=== PATIENT | male | born 1960 ===

== ENCOUNTER 2017-01-02 10:42 | Inpatient (IN) | payer OTHER ==
[~2017-01-02] VITALS: Ht 182.9 cm; Wt 106.6 kg
[2017-01-02] VITALS (14 sets, daily range): BP systolic 140–197; BP diastolic 82–120
--- NOTE | 2017-01-02 06:26 | Anethesia Preoperative Eval ---
Anesthesia Pre-op PMH/ROS General Date of Evaluation: Jan 02, 2017 Time of Evaluation: 06:26 Anesthesiologist: jovita Mallampati Score Class I : Soft palate, uvula, fauces, pillars visible Class II: Soft palate, uvula, fauces visible Class III: Soft palate, base of uvula visible Class IV: Only hard plate visible Allergies: Coded Allergies: No Known Allergies (Unverified , 01/02/17) Medications: see eMAR Past Medical History Cardiovascular: Reports: HTN Musculoskeletal/Integumentary: Reports: OA Other: obesity VERNELL FLORES Jan 02, 2017 06:26
--- NOTE | 2017-01-02 11:20 | Diagnostic Imaging Report ---
Indication: Left hip pain Technique: 2 views of the left hip Comparison: None Findings: There are severe degenerative changes of the left hip joint. There is joint space narrowing subchondral sclerosis on both sides, as well as proliferative change. Extensive phleboliths are seen in the pelvis. Impression: Degenerative left hip arthropathy, as described
[2017-01-02] MEDS ORDERED: NS Irrig 2000ml IRRIG ONE (11:55)
[2017-01-02] MEDS ORDERED: Bacitracin 50000 Units Vial ONE (11:55)
[2017-01-02] MEDS ORDERED: Duramorph PF 5mg/10ml amp ONE (11:57)
[2017-01-02] MEDS ORDERED: NORCO 10/3251 EA ORAL (12:02)
[2017-01-02] MEDS ORDERED: Propofol 200mg/20ml IV ONE (12:02)
--- NOTE | 2017-01-02 12:09 | Pre-Procedure Note/Attestation ---
Pre-Procedure Note/Attestation Complete Prior to Procedure Planned Procedure: right Procedure Narrative: right total hip Indications for Procedure Pre-Operative Diagnosis: right hip arthritis Attestation I attest that I discussed the nature of the procedure; its benefits; risks and complications; and alternatives (and the risks and benefits of such alternatives ), prior to the procedure, with the patient (or the patient's legal vendor representatives). I attest that, if there was a reasonable possibility of needing a blood transfusion, the patient (or the patient's legal vendor representatives) was given the [facility] standardized written summary, pursuant to the [place] Blood Safety Act ([place] Health and Safety Code # 1645, as amended). I attest that I re-evaluated the patient just prior to the surgery and that there has been no change in the patient's H&P, except as documented below: FRAN DORAN Jan 02, 2017 12:09
--- NOTE | 2017-01-02 12:23 | Pre-Procedure Note/Attestation ---
Pre-Procedure Note/Attestation Complete Prior to Procedure Planned Procedure: left Procedure Narrative: left total hip corrected Indications for Procedure Pre-Operative Diagnosis: left hip arthritis Attestation I attest that I discussed the nature of the procedure; its benefits; risks and complications; and alternatives (and the risks and benefits of such alternatives ), prior to the procedure, with the patient (or the patient's legal electronics parts sales representative). I attest that, if there was a reasonable possibility of needing a blood transfusion, the patient (or the patient's legal electronics parts sales representative) was given the [facility] standardized written summary, pursuant to the [place] Blood Safety Act ([place] Health and Safety Code # 1645, as amended). I attest that I re-evaluated the patient just prior to the surgery and that there has been no change in the patient's H&P, except as documented below: FRAN DORAN Jan 02, 2017 12:23
[2017-01-02] MEDS ORDERED: Ropivacaine 5mg/ml Vial 20ml INJ ONE (12:27)
[2017-01-02] MEDS ORDERED: cloNIDine 1000mcg/10ml inj ONE (12:32)
[2017-01-02] MEDS ORDERED: Bupivacaine 0.5% Inj 30 ml vial INJ ONE (12:43)
[2017-01-02] MEDS ORDERED: LR 1000ml 1,000 ML IVLG SCH (13:58)
--- NOTE | 2017-01-02 13:58 | Anethesia Preoperative Eval ---
Anesthesia Pre-op PMH/ROS General Date of Evaluation: Jan 02, 2017 Time of Evaluation: 12:32 Anesthesiologist: Dariela ASA Score: ASA 3 Mallampati Score Class I : Soft palate, uvula, fauces, pillars visible Class II: Soft palate, uvula, fauces visible Class III: Soft palate, base of uvula visible Class IV: Only hard plate visible Mallampati Classification: Class III Surgeon: Lawrence Diagnosis: L Hip Pain Surgical Procedure: L Hip Total Arthroplasty Anesthesia History: none Family History: no anesthesia problems Allergies: Coded Allergies: No Known Allergies (Unverified , 01/02/17) Medications: see eMAR Past Medical History Cardiovascular: Reports: HTN, other - HL Musculoskeletal/Integumentary: Reports: OA Other: obesity - BMI 32 PSxH Narrative: R ORION, L Shoulder Sx Anesthesia Pre-op Phys. Exam Physician Exam Last Vital Signs Date Time Temp Pulse Resp B/P (MAP) Pulse Ox O2 Delivery O2 Flow Rate FiO2 01/02/17 11:24 98.1 95 18 140/95 98 Room Air Constitutional: NAD Neurologic: CN 2-12 intact Cardiovascular: RRR Respiratory: CTA Gastrointestinal: S/NT/ND Airway Exam Mallampati Score: Class III MO: limited ROM: limited Teeth: intact Anesthesia Pre-op A/P Risk Assessment & Plan Assessment: ASA 3 Plan: GA, Spinal, L Lumbar Block Status Change Before Surgery: No Pre-Antibiotics Dru Grams Ancef IV Given Within 1 Hr of Incision: Yes Time Given: 13:01 Kayden Lyle MD Jan 02, 2017 13:58
[2017-01-02] MEDS ORDERED: Tranexamic Acid 1,000 MG in NS 65 ML IVPB ONE (14:00)
[2017-01-02] MEDS ORDERED: fentaNYL 100 mcg/2 mL IV PRN (14:00)
[2017-01-02] MEDS ORDERED: Metoclopramide 10mg/2ml Inj IVP PRN (14:00)
[2017-01-02] MEDS ORDERED: Midazolam 2mg/2ml Inj IVP PRN (14:00)
[2017-01-02] MEDS ORDERED: Norco 7.5mg/325mg tab ORAL PRN (14:00)
[2017-01-02] MEDS ORDERED: Atropine Inj 1mg/10ml Syr IV PRN (14:00)
[2017-01-02] MEDS ORDERED: Ketorolac 60mg Inj IV PRN (14:00)
[2017-01-02] MEDS ORDERED: Meperidine 25mg/0.5ml Inj (FOR RIGORS ONLY) IV PRN (14:00)
[2017-01-02] MEDS ORDERED: LORazepam Inj 2mg/ml 1ml IV PRN (14:00)
[2017-01-02] MEDS ORDERED: oxyCODONE HCL/Acetaminophen 5/325mg ORAL PRN (14:00)
[2017-01-02] MEDS ORDERED: Norco 5mg/325mg tab ORAL PRN (14:00)
[2017-01-02] MEDS ORDERED: DiphenhydrAMINE 50mg/ml Inj IVP PRN (14:00)
[2017-01-02] MEDS ORDERED: Ketorolac 30mg Inj IV PRN (14:00)
--- NOTE | 2017-01-02 14:00 | Immediate Post-Op Evaluation ---
Immediate Post-Op Evalulation Immediate Post-Op Evalulation Procedure: L Total Hip Arthroplasty Date of Evaluation: Jan 02, 2017 Time of Evaluation: 16:05 IV Fluids: 1200 Blood Products: 0 Estimated Blood Loss: 50 Urinary Output: 0 Blood Pressure Systolic: 184 Blood Pressure Diastolic: 116 Pulse Rate: 85 Respiratory Rate: 16 O2 Sat by Pulse Oximetry: 99 Temperature (Fahrenheit): 98.7 Pain Score (1-10): 4 Nausea: No Vomiting: No Complications 0 Patient Status: awake, reacts, patent, extubated, none Hydration Status: adequate Dru Grams Ancef IV Given Within 1 Hr of Incision: Yes Time Given: 13:01 Kayden Lyle MD Jan 02, 2017 14:00
--- NOTE | 2017-01-02 16:45 | Diagnostic Imaging Report ---
Indication: Intraoperative, hip pain Technique: One view of the pelvis Comparison: Left hip radiograph 5 hours earlier Findings: Intraoperative images demonstrate placement of an acetabular cup and a left femoral broach. Impression: Intraoperative imaging, as described
[2017-01-02] MEDS: Hydromorphone 0.5mg/0.5ml inj IVP PRN ×2 (16:52→17:45)
--- NOTE | 2017-01-02 17:37 | General Progress Note ---
Assessment/Plan Assessment/Plan L Hip Total Arthroplasty OA PLAN 1. incentive spirometry 2. Lovenox 3. PT evaluation and therapy 4. Hydration 5. Pain management 6. discharge once stable with outpatient follow up Subjective Allergies: Coded Allergies: No Known Allergies (Unverified , 01/02/17) Subjective asked to followup post op Objective Last 24 Hour Vital Signs Date Time Temp Pulse Resp B/P (MAP) Pulse Ox O2 Delivery O2 Flow Rate FiO2 01/02/17 17:00 77 17 167/97 99 Room Air 01/02/17 16:45 85 16 172/100 99 Room Air 01/02/17 16:30 80 18 174/109 99 Room Air 01/02/17 16:25 195/121 01/02/17 16:20 81 20 183/107 99 Room Air 01/02/17 16:10 89 23 196/110 99 Room Air 01/02/17 16:00 84 20 197/120 99 Room Air 01/02/17 15:56 85 16 99 01/02/17 15:54 98.7 85 16 184/116 99 Room Air 01/02/17 11:24 98.1 95 18 140/95 98 Room Air Height (Feet): 6 Height (Inches): 0.00 Weight (Pounds): 235 Objective WDWN NAD clear breath sounds bilaterally without rhonchi or wheeze [id number] without MRG NABS nontender no HSM no CCE nonfocal ANGELIQUE FLOREZ Jan 02, 2017 17:37
[2017-01-02] MEDS: D5 1/2NS w/KCl 20mEq 1,000 ML IV SCH (20:31)
[2017-01-02] MEDS: Norco 10mg/325mg tab ORAL PRN (23:53)
[2017-01-03] VITALS (8 sets, daily range): BP systolic 147–189; BP diastolic 73–103
[2017-01-03] MEDS: Norco 10mg/325mg tab ORAL PRN ×3 (03:58→20:41)
[2017-01-03] MEDS: D5 1/2NS w/KCl 20mEq 1,000 ML IV SCH ×2 (06:48→08:20)
[2017-01-03] MEDS: HYDROmorphone 1mg/ml Carpuject IVP PRN ×5 (06:54→22:07)
[2017-01-03 08:03] LABS: BASOPHILS % (AUTO) 0.2 % (0.0-2.0); EOSINOPHILS % (AUTO) 0.1 % (0.0-3.0); LYMPHOCYTES % (AUTO) 12.8 % (20.0-45.0); MEAN CORPUSCULAR HGB CONC 34.3 G/DL (32.0-36.0); MEAN CORPUSCULAR VOLUME 96 FL (80-99); MEAN PLATELET VOLUME 6.7 FL (6.5-10.1); PLATELET COUNT 206 K/UL (150-450); RED BLOOD COUNT 4.02 M/UL (4.70-6.10); RED CELL DISTRIBUTION WIDTH 11.7 % (11.6-14.8); WHITE BLOOD COUNT 11.4 K/UL (4.8-10.8)
--- NOTE | 2017-01-03 08:06 | 48 Hour Post Anesthesia Eval ---
Post Anesthesia Evaluation Procedure: L Total Hip Arthroplasty Date of Evaluation: Jan 03, 2017 Time of Evaluation: 07:03 Blood Pressure Systolic: 155 0: 76 Pulse Rate: 78 Respiratory Rate: 20 Temperature (Fahrenheit): 98.6 O2 Sat by Pulse Oximetry: 97 Airway: patent Nausea: No Vomiting: No Pain Intensity: 3 Hydration Status: adequate Cardiopulmonary Status: Stable Mental Status/LOC: patient returned to baseline Follow-up Care/Observations: 0 Post-Anesthesia Complications: 0 Follow-up care needed: N/A Kayden Lyle MD Jan 03, 2017 08:05
[2017-01-03 08:16] LABS: ANION GAP 11 (5-15); CALCIUM 8.4 mg/dL (8.6-10.2); CARBON DIOXIDE 25 mEQ/L (20-30); CHLORIDE 105 mEQ/L (98-107); GLOMERULAR FILTRATION RATE > 60 mL/min (>60); HEMOLYSIS 4; POTASSIUM 3.9 mEQ/L (3.4-4.9); SODIUM 141 mEQ/L (135-145)
[2017-01-03 08:31] LABS: PROTHROMBIN TIME 10.9 SEC (9.30-11.50)
[2017-01-03] MEDS ORDERED: Propofol 200mg/20ml IV ONE (12:30)
[2017-01-03] MEDS ORDERED: Sterile Water Irrig 1000ml IRRIG ONE (12:30)
[2017-01-03] MEDS ORDERED: fentaNYL 100 mcg/2 mL IV ONE (12:30)
[2017-01-03] MEDS ORDERED: Ketamine 500mg Inj ONE (12:30)
[2017-01-03] MEDS ORDERED: Lidocaine 1% MPF 10mg/ml 5ml ONE (12:30)
[2017-01-03] MEDS ORDERED: Glycopyrrolate 0.2mg/ml 1ml Vial ONE (12:30)
[2017-01-03] MEDS ORDERED: Midazolam 2mg/2ml Inj ONE (12:30)
[2017-01-03] MEDS ORDERED: NS Irrig 1000ml ONE (12:30)
[2017-01-03] MEDS ORDERED: NS Irrig 2000ml IRRIG ONE (12:30)
[2017-01-03] MEDS ORDERED: LR 1000ml ONE (12:30)
[2017-01-03] MEDS ORDERED: Dexamethasone 4mg/ml vial ONE (12:30)
--- NOTE | 2017-01-03 15:07 | General Progress Note ---
Assessment/Plan Assessment/Plan L Hip Total Arthroplasty OA PLAN 1. incentive spirometry 2. Lovenox 3. PT evaluation and therapy 4. Hydration 5. Pain management- norco and dilaudid 6. discharge once stable with outpatient follow up Subjective Allergies: Coded Allergies: No Known Allergies (Unverified , 01/02/17) Subjective still having pain post op Objective Last 24 Hour Vital Signs Date Time Temp Pulse Resp B/P (MAP) Pulse Ox O2 Delivery O2 Flow Rate FiO2 01/03/17 11:46 98.9 86 20 147/81 99 Room Air 01/03/17 08:05 78 20 97 01/03/17 07:56 98.6 78 20 155/76 97 Room Air 01/03/17 04:00 97.7 58 20 159/89 98 Room Air 01/03/17 00:00 97.8 77 20 149/73 96 Room Air 2.0 01/02/17 20:00 97.9 60 16 156/82 98 Nasal Cannula 2.0 01/02/17 18:30 97.9 60 15 146/84 99 Room Air 01/02/17 17:58 97.5 66 17 151/91 99 Nasal Cannula 3.0 01/02/17 17:40 65 15 156/93 98 Room Air 01/02/17 17:30 70 14 149/90 99 Room Air 01/02/17 17:15 71 15 157/95 100 Room Air 01/02/17 17:00 77 17 167/97 99 Room Air 01/02/17 16:45 85 16 172/100 99 Room Air 01/02/17 16:30 97.6 01/02/17 16:30 97.6 01/02/17 16:30 97.6 01/02/17 16:30 97.6 01/02/17 16:30 80 18 174/109 99 Room Air 01/02/17 16:25 195/121 01/02/17 16:20 81 20 183/107 99 Room Air 01/02/17 16:10 89 23 196/110 99 Room Air 01/02/17 16:00 84 20 197/120 99 Room Air 01/02/17 15:56 85 16 99 01/02/17 15:54 98.7 85 16 184/116 99 Room Air Intake and Output 01/03/17 01/04/17 19:00 07:00 Intake Total 870 ml Balance 870 ml Intake Oral 870 ml Laboratory Tests 01/03/17 07:40: White Blood Count 11.4H, Red Blood Count 4.02L, Hemoglobin 13.2L, Hematocrit 38.6L, Mean Corpuscular Volume 96, Mean Corpuscular Hemoglobin 33.0H, Mean Corpuscular Hemoglobin Concent 34.3, Red Cell Distribution Width 11.7, Platelet Count 206, Mean Platelet Volume 6.7, Neutrophils (%) (Auto) 75.0, Lymphocytes (% ) (Auto) 12.8L, Monocytes (%) (Auto) 12.0H, Eosinophils (%) (Auto) 0.1, Basophils (%) (Auto) 0.2, Prothrombin Time 10.9, Prothromb Time International Ratio 1.0, Activated Partial Thromboplast Time 26, Sodium Level 141, Potassium Level 3.9, Chloride Level 105, Carbon Dioxide Level 25, Anion Gap 11, Blood Urea Nitrogen 15, Creatinine 1.0, Estimat Glomerular Filtration Rate > 60, Glucose Level 126H, Calcium Level 8.4L Height (Feet): 6 Height (Inches): 0.00 Weight (Pounds): 235 Objective WDWN NAD clear breath sounds bilaterally without rhonchi or wheeze [id number] without MRG NABS nontender no HSM no CCE nonfocal ANGELIQUE FLOREZ Jan 03, 2017 15:07
[2017-01-04] VITALS: BP 143/77
[2017-01-04] MEDS: Norco 10mg/325mg tab ORAL PRN ×4 (00:49→15:21)
[2017-01-04] MEDS: HYDROmorphone 1mg/ml Carpuject IVP PRN (02:09)
[2017-01-04 04:00] VITALS: BP 149/81
[2017-01-04 06:58] LABS: BASOPHILS % (AUTO) 0.4 % (0.0-2.0); LYMPHOCYTES % (AUTO) 21.2 % (20.0-45.0); MEAN CORPUSCULAR HEMOGLOBIN 33.1 PG (27.0-31.0); MEAN CORPUSCULAR HGB CONC 35.1 G/DL (32.0-36.0); MEAN CORPUSCULAR VOLUME 94 FL (80-99); MEAN PLATELET VOLUME 7.6 FL (6.5-10.1); MONOCYTES % (AUTO) 10.4 % (1.0-10.0); NEUTROPHILS % (AUTO) 66.9 % (45.0-75.0); PLATELET COUNT 215 K/UL (150-450); RED BLOOD COUNT 3.83 M/UL (4.70-6.10); RED CELL DISTRIBUTION WIDTH 11.6 % (11.6-14.8); WHITE BLOOD COUNT 9.1 K/UL (4.8-10.8)
[2017-01-04 08:00] VITALS: BP 160/91
--- NOTE | 2017-01-04 08:00 | General Progress Note ---
Assessment/Plan Assessment/Plan L Hip Total Arthroplasty OA PLAN 1. incentive spirometry 2. Lovenox 3. PT evaluation and therapy 4. Hydration 5. Pain management- norco and dilaudid 6. discharge planning Subjective Allergies: Coded Allergies: No Known Allergies (Unverified , 01/02/17) Subjective still having pain post op care noted Objective Last 24 Hour Vital Signs Date Time Temp Pulse Resp B/P (MAP) Pulse Ox O2 Delivery O2 Flow Rate FiO2 01/04/17 04:00 98.4 62 18 149/81 95 Room Air 01/04/17 02:39 98.7 01/04/17 01:48 98.7 01/04/17 00:00 98.7 68 18 143/77 98 Room Air 01/03/17 21:40 97.8 01/03/17 20:40 156/92 01/03/17 20:00 97.8 63 19 156/92 98 Room Air 01/03/17 18:33 98.1 65 20 158/78 95 Room Air 01/03/17 17:18 97.4 60 20 178/101 100 Room Air 01/03/17 16:00 97.7 54 20 189/103 96 Room Air 01/03/17 11:46 98.9 86 20 147/81 99 Room Air 01/03/17 08:05 78 20 97 Laboratory Tests 01/04/17 06:10: White Blood Count 9.1, Red Blood Count 3.83L, Hemoglobin 12.7L, Hematocrit 36.1L , Mean Corpuscular Volume 94, Mean Corpuscular Hemoglobin 33.1H, Mean Corpuscular Hemoglobin Concent 35.1, Red Cell Distribution Width 11.6, Platelet Count 215, Mean Platelet Volume 7.6, Neutrophils (%) (Auto) 66.9, Lymphocytes (% ) (Auto) 21.2, Monocytes (%) (Auto) 10.4H, Eosinophils (%) (Auto) 1.0, Basophils (%) (Auto) 0.4 Height (Feet): 6 Height (Inches): 0.00 Weight (Pounds): 235 Objective WDWN NAD clear breath sounds bilaterally without rhonchi or wheeze [id number] without MRG NABS nontender no HSM no CCE nonfocal ANGELIQUE FLOREZ Jan 04, 2017 08:00
[2017-01-04] MEDS ORDERED: Enoxaparin 40mg Inj SUBQ SCH (09:00)
[2017-01-04 11:43] VITALS: BP 152/95
[2017-01-04] MEDS ORDERED: XARELTO10 MG ORAL (14:44)
--- NOTE | 2017-01-07 12:02 | Discharge Summary ---
Discharge Summary Hospital Course Date of Admission Jan 02, 2017 at 10:42 Date of Discharge Jan 04, 2017 at 15:28 Admitting Diagnosis Osteoarthritis left hip Reason for Hospitalization: elective surgery HPI Andre Cook is a 56 year old male who was admitted on Jan 02, 2017 at 10:42 for Lt Hip Osteoarthritis and elective surgery Procedures s/p left total hip arthroplasty 01/02 by FRAN Hicks Jan 02, 2017 12:23 Hospital Course s/p surgery course of recovery unremarkable initially IVF pain management IS at the bedside , encourage to use while in the bed PT eval and Rx, ambulated dressing C/D/I DVT prophylaxis bowel regimen voided freely stable for dc home with services fup as outpatient with surgeon as advised FINAL DIAGNOSES l left hip osteoarthritis s/p left total hip arthroplasty Discharge Medications Continued Medications: Hydrocodone/Acetaminophen (Hydrocodon-Acetaminophn 10-325) 1 Each Tablet 1 TAB ORAL Q4H PRN for For Pain, #30 TAB 0 Refills Rivaroxaban (Xarelto*) 10 Mg Tablet 10 MG ORAL DAILY for 30 Days, #30 TAB 0 Refills Discharge Condition Upon Discharge: stable Discharge Disposition Patient was discharged to Home (01) Discharge Diagnoses: Discharge Instructions Discharge Instructions Special Instructions I have been assigned to complete a D/C Summary on this account. I was not involved in the patient management Stefania Patiño NP ([place]) Jan 07, 2017 12:02
--- NOTE | 2017-01-08 08:15 | Operative Note - Dictated ---
DATE OF OPERATION: 01/02/2017 NOTE: POOR AUDIO QUALITY PREOPERATIVE DIAGNOSIS: Left hip end-stage osteoarthritis. POSTOPERATIVE DIAGNOSES: 1. Left hip end-stage osteoarthritis. 2. Left hip synovitis. PROCEDURES: 1. Left total hip replacement modifier 22 secondary to difficulty due to hard bone. 2. Adductor contracture release. 3. Synovectomy. SURGEON: Leroy Bravo M.D. SENIOR COMMUNICATIONS SPECIALIST: Alirio Perry PA-C. JUNIOR MECHANICAL ENGINEER: Unknown. Preoperative Note: This is a pleasant gentleman, who has been having issues with his hip associated with continual pain 00:54 findings of end-stage osteoarthritis. I explained to him the surgery and the risks including failure of surgery. The patient agreed and consents were obtained. Operative Room Note: Under the benefit of endotracheal intubation and general anesthetic, the patient's hip was prepped and draped in an appropriate manner. Posterolateral incision was made, incised through subcutaneous tissue down through TFL using the short external rotators. I then did a T-capsulectomy removing the capsule, identifying the nerve pre and post, which was completely intact. Dislocated the hip. We then osteotomized the head above fingerbreadth above the lesser trochanter. I started reaming the acetabulum. The bone was really strong and it took excessive effort 01:48 modifier 22 secondary to difficulty. Reamed up to a 55 accepting a 56 cup. I then banged in 56 cup in 40 degrees of vertical inclination and 15 degrees of anteversion. Irrigated the wound copiously, placed 40 ID liner in. I then proceeded to work on the femur and started broaching down the canal. It was very tough to find the canal as again the bone was very sclerotic. We used an x-ray to confirm the position and again no source of modifier 22 secondary to difficulty and then I broached down to #2 SLS stem. Selecting the #2 SLS stem, I banged this in with a neutral head. Leg lengths appeared to be within normal limits comparing on both x-rays and clinical anatomic margins. I 02:58 reduced the head, closed the capsule up and closed the TFL up and closed the subcutaneous up, stapled skin. The patient went to recovery room in stable condition. There were no complications during this procedure. Bal Mikael Bravo DR: DEN JOB#: [id number] CC:
== END 2017-01-04 15:28 | disposition home health service (06) | DRG 470 ==
LOC: SDSOVERFLO 10:42 → 3E 17:49
PROC: 0SBB0ZZ Excision of Left Hip Joint, Open Approach (ICD-10-PCS; principal; 2017-01-02 12:00)
PROC: 0SRB02A Replacement of Left Hip Joint with Metal on Polyethylene Synthetic Substitute, Uncemented, Open Approach (ICD-10-PCS; principal; 2017-01-02 12:00)
DX: M16.12 Unilateral primary osteoarthritis, left hip (principal); I10 Essential (primary) hypertension; M24.552 Contracture, left hip; M65.88 Other synovitis and tenosynovitis, other site
CPT/HCPCS: 36415; 72170; 73502; 80048; 85025; 85610; 85730; 86850; 86900; 86901; 86920; 87081; 94003; 94150; J2180; J2250; J2405; J2765